=== PATIENT | male | born 1935 | race Caucasian/White ===

== ENCOUNTER 2021-12-03 10:44 | Day surgery (SDC) | payer MEDICARE, BC ==
[2021-12-02 12:38] LABS: BASOPHILS # (AUTO) 0.1 X10'3 (0-0.2); BASOPHILS % (AUTO) 0.9 % (0-1); EOSINOPHILS # (AUTO) 0.3 X10'3 (0-0.9); EOSINOPHILS % (AUTO) 4.1 % (0-6); HEMATOCRIT 35.7 % (42.0-52.0); HEMOGLOBIN 11.7 g/dl (14.0-17.9); LYMPHOCYTES # (AUTO) 1.5 X10'3 (1.1-4.8); LYMPHOCYTES % (AUTO) 19.7 % (21-51); MEAN CORPUSCULAR HEMOGLOBIN 29.3 PG (27.0-31.0); MEAN CORPUSCULAR HGB CONC 32.7 g/dL (33.0-36.5); MEAN CORPUSCULAR VOLUME 89.6 FL (78-98); MEAN PLATELET VOLUME 7.4 FL (7.4-10.4); MONOCYTES % (AUTO) 13.5 % (2-12); NEUTROPHILS # (AUTO) 4.7 X10'3 (1.8-7.7); NEUTROPHILS % (AUTO) 61.8 % (42-75); PLATELET COUNT 173 X10'3 (140-440); RED BLOOD COUNT 3.98 X10'6 (4.70-6.10); RED CELL DISTRIBUTION WIDTH 14.1 % (11.5-14.5); WHITE BLOOD COUNT 7.5 X10'3 (4.5-11.0)
[2021-12-02 12:54] LABS: APTT 30 SECONDS (22-32)
[2021-12-02 13:03] LABS: ALBUMIN 2.9 G/DL (3.4-5.0); ANION GAP 8 (8-16); BLOOD UREA NITROGEN 32 MG/DL (7-18); BUN/CREATININE RATIO 20.1 (5.4-32.0); CALCIUM 9.1 MG/DL (8.5-10.1); CHLORIDE 101 MMOL/L (99-107); CREATININE 1.59 MG/DL (0.60-1.10); GLUCOSE 111 MG/DL (70-104); POTASSIUM 4.1 MMOL/L (3.5-5.1); SODIUM 141 MMOL/L (135-145); TOTAL CARBON DIOXIDE 32.1 MMOL/L (24-32); eGFR 41 ML/MIN
[~2021-12-03] VITALS: Ht 170.2 cm; Wt 62.6 kg
[2021-12-03] VITALS (10 sets, daily range): BP systolic 118–150; BP diastolic 64–85
[2021-12-03] MEDS ORDERED: ceFAZolin inj. 2,000 MG in dextrose 5%-water 100 ML IV ONE (11:47)
[2021-12-03] MEDS ORDERED: ROSU20TA31 PO (11:48)
[2021-12-03] MEDS ORDERED: QUET50TA24 PO (11:48)
[2021-12-03] MEDS ORDERED: DULO30CA52 PO (11:48)
[2021-12-03] MEDS ORDERED: METO50TA16 PO (11:48)
[2021-12-03] MEDS ORDERED: APIX5TAB3 PO (11:48)
[2021-12-03] MEDS ORDERED: FLO0.4C (11:48)
[2021-12-03] MEDS ORDERED: METF-437 PO (11:48)
[2021-12-03] MEDS ORDERED: DULO60CA65 PO (11:48)
[2021-12-03] MEDS ORDERED: FURO20TA4 PO (11:48)
[2021-12-03] MEDS ORDERED: DIVA-74 PO (11:48)
[2021-12-03] MEDS ORDERED: MULT-1085 PO (12:00)
[2021-12-03] MEDS ORDERED: DONE10TA11 PO (12:00)
[2021-12-03] MEDS ORDERED: ACET325T57 PO (12:00)
[2021-12-03] MEDS ORDERED: MELA3TAB70 PO (12:04)
[2021-12-03] MEDS ORDERED: MIDO5TAB4 PO (12:04)
[2021-12-03] MEDS ORDERED: OMEGA KRILL PO (12:04)
[2021-12-03] MEDS ORDERED: CARB10DR5 (12:05)
[2021-12-03] MEDS ORDERED: ZINC50TA15 PO (12:06)
[2021-12-03] MEDS ORDERED: midazolam 1 mg/ML 2ml injection ONE (13:55)
[2021-12-03] MEDS ORDERED: fentaNYL/PF 50MCG/1 ML 2ML syringe ONE (13:56)
[2021-12-03] MEDS ORDERED: ceFAZolin 1000mg inj ONE (13:56)
[2021-12-03] MEDS ORDERED: LIDOCAINE 2% w/EPI 1:100:000 30mL injection MDV**cath lab 1 only ONE (13:56)
[2021-12-03] MEDS ORDERED: LIDOcaine 1% W/epiNEPHrine 1:100,000 20ml vial ONE (14:15)
[2021-12-03] MEDS ORDERED: vancomycin/NS 1 GM ADD-VANTAGE 250 ML X 1 DOSE IV ONE (15:50)
--- NOTE | 2021-12-03 18:51 | NUR ---
Report called to FARRUKH [facility] at [place]. All questions answered.
== END 2021-12-03 20:00 ==
LOC: SSTAY O 10:44
PROVIDERS: ATTEND Internal Medicine Cardiovascular Disease
DX: Z45.010 Encounter for checking and testing of cardiac pacemaker pulse generator [battery] (principal); E11.9 Type 2 diabetes mellitus without complications; I10 Essential (primary) hypertension; I48.91 Unspecified atrial fibrillation; Z79.899 Other long term (current) drug therapy; Z79.01 Long term (current) use of anticoagulants; Z87.891 Personal history of nicotine dependence
CPT/HCPCS: 33228; 36415; 80048; 82948; 85025; 85610; 85730; 93005; 99152; 99153; C1785; J0690; J2250; J3010; J3370; J3490; A6258; A6449

== ENCOUNTER 2021-12-04 07:41 | Emergency (ER) | payer MEDICARE, BC ==
[~2021-12-04] VITALS: Ht 170.2 cm; Wt 63.2 kg
[~2021-12-04 07:41] MED LIST: ACET325T57 PO; APIX5TAB3 PO; CARB10DR5; DIVA-74 PO; DONE10TA11 PO; DULO30CA52 PO; DULO60CA65 PO; FLO0.4C; FURO20TA4 PO; MELA3TAB70 PO; METF-437 PO; METO50TA16 PO; MIDO5TAB4 PO; MULT-1085 PO; OMEGA KRILL PO; QUET50TA24 PO; ROSU20TA31 PO; ZINC50TA15 PO
[2021-12-04 09:18] VITALS: BP 139/77
--- NOTE | 2021-12-04 09:47 | NUR ---
PT PACEMAKER DRESSING SITE IS OOZING BLOOD AND THE DRESSING IS ALREADY SOAKED.NOTIFIED DR JOSE ,ORDER TO REDRESS IT .JUWAN CANTOR DOING THE DRESSING CHANGE .
[2021-12-04 10:24] LABS: BASOPHILS # (AUTO) 0.1 X10'3 (0-0.2); BASOPHILS % (AUTO) 0.9 % (0-1); EOSINOPHILS # (AUTO) 0.4 X10'3 (0-0.9); EOSINOPHILS % (AUTO) 4.3 % (0-6); HEMATOCRIT 35.7 % (42.0-52.0); HEMOGLOBIN 12.1 g/dl (14.0-17.9); LYMPHOCYTES # (AUTO) 1.4 X10'3 (1.1-4.8); MEAN CORPUSCULAR HEMOGLOBIN 30.2 PG (27.0-31.0); MEAN CORPUSCULAR HGB CONC 33.8 g/dL (33.0-36.5); MEAN CORPUSCULAR VOLUME 89.5 FL (78-98); MEAN PLATELET VOLUME 6.8 FL (7.4-10.4); MONOCYTES # (AUTO) 1.4 X10'3 (0-0.9); MONOCYTES % (AUTO) 15.7 % (2-12); NEUTROPHILS # (AUTO) 5.7 X10'3 (1.8-7.7); NEUTROPHILS % (AUTO) 63.1 % (42-75); PLATELET COUNT 170 X10'3 (140-440); RED BLOOD COUNT 3.99 X10'6 (4.70-6.10); WHITE BLOOD COUNT 9.1 X10'3 (4.5-11.0)
[2021-12-04 10:35] LABS: APTT 28 SECONDS (22-32)
[2021-12-04 10:42] LABS: ALANINE AMINOTRANSFERASE 13 U/L (12-78); ALBUMIN/GLOBULIN RATIO 0.7 (1.1-1.5); ALKALINE PHOSPHATASE 57 IU/L (46-116); ANION GAP 6 (8-16); ASPARTATE AMINO TRANSFERASE 21 U/L (10-37); BILIRUBIN,TOTAL 0.5 MG/DL (0.1-1.0); BLOOD UREA NITROGEN 23 MG/DL (7-18); BUN/CREATININE RATIO 18.9 (5.4-32.0); CALCIUM 9.3 MG/DL (8.5-10.1); CHLORIDE 100 MMOL/L (99-107); CREATININE 1.22 MG/DL (0.60-1.10); GLUCOSE 136 MG/DL (70-104); POTASSIUM 4.4 MMOL/L (3.5-5.1); SODIUM 139 MMOL/L (135-145); TOTAL CARBON DIOXIDE 33.2 MMOL/L (24-32); TOTAL PROTEIN 7.2 G/DL (6.4-8.2); eGFR 56 ML/MIN
--- NOTE | 2021-12-04 12:13 | NUR ---
PT FAMILY REQUESTING DR JOSE TO CALL DR ECHAVARRIA'S OFFICE TO NOTIFY MD TO SEE PT PACEMAKER SITE BEFORE HE LEAVES, PER MD THEY CAN F/U WITH DR ECHAVARRIA AT OFFICE . INFORMED THE PT DAUGHTER THAT THEY HAVE TO F/U WITH THEIR DR OR DR ECHAVARRIA ON OUTPT BASIS.DAUGHTER VERBALIZED UNDERSTANDING. DRESSING SITE INTACT ,NOT BLEEDING . MD MORGAN IS AWARE OKAY TO D/C THE PT. DAUGHTER CALLING FOR THE RIDE TO [place].
--- NOTE | 2021-12-04 12:21 | NUR ---
SBAR TO NADER PRIMARY NURSE AT [facility] AT [phone] REGARDING PT F/U APPT FOR RECHECKING THE SITE AND ALSO INFORMED TO RETURN TO ER FOR ACTIVE BLEEDING .
== END 2021-12-04 12:40 | disposition home or self-care (01) ==
LOC: ER 07:42
DX: I97.618 Postprocedural hemorrhage of a circulatory system organ or structure following other circulatory system procedure (principal); Z95.0 Presence of cardiac pacemaker; Z86.79 Personal history of other diseases of the circulatory system; Z88.2 Allergy status to sulfonamides; Z79.899 Other long term (current) drug therapy
CPT/HCPCS: 80053; 83880; 85025; 85610; 85730; 99283

== ENCOUNTER 2021-12-05 10:36 | Observation (INO) | payer MEDICARE, BC ==
[~2021-12-05] VITALS: Ht 170.2 cm; Wt 63.0 kg
[2021-12-05] MEDS ORDERED: normal saline 1000ml 1,000 ML IV ONE (11:30)
--- NOTE | 2021-12-05 11:40 | NUR ---
To CT w pt
--- NOTE | 2021-12-05 11:50 | NUR ---
back from CT
[2021-12-05 12:28] LABS: BASOPHILS # (AUTO) 0.1 X10'3 (0-0.2); BASOPHILS % (AUTO) 0.9 % (0-1); EOSINOPHILS # (AUTO) 0.3 X10'3 (0-0.9); EOSINOPHILS % (AUTO) 3.9 % (0-6); HEMATOCRIT 35.2 % (42.0-52.0); HEMOGLOBIN 11.6 g/dl (14.0-17.9); LYMPHOCYTES # (AUTO) 1.5 X10'3 (1.1-4.8); LYMPHOCYTES % (AUTO) 21.3 % (21-51); MEAN CORPUSCULAR HEMOGLOBIN 29.3 PG (27.0-31.0); MEAN CORPUSCULAR VOLUME 88.8 FL (78-98); MEAN PLATELET VOLUME 6.9 FL (7.4-10.4); MONOCYTES # (AUTO) 1.2 X10'3 (0-0.9); MONOCYTES % (AUTO) 17.5 % (2-12); NEUTROPHILS # (AUTO) 3.9 X10'3 (1.8-7.7); NEUTROPHILS % (AUTO) 56.4 % (42-75); PLATELET COUNT 174 X10'3 (140-440); RED BLOOD COUNT 3.97 X10'6 (4.70-6.10); RED CELL DISTRIBUTION WIDTH 13.6 % (11.5-14.5); WHITE BLOOD COUNT 6.9 X10'3 (4.5-11.0)
[2021-12-05 12:36] LABS: APTT 28 SECONDS (22-32)
[2021-12-05 12:37] LABS: ALANINE AMINOTRANSFERASE 9 U/L (12-78); ALBUMIN/GLOBULIN RATIO 0.7 (1.1-1.5); ALKALINE PHOSPHATASE 57 IU/L (46-116); ANION GAP 6 (8-16); ASPARTATE AMINO TRANSFERASE 18 U/L (10-37); BILIRUBIN,TOTAL 0.5 MG/DL (0.1-1.0); BLOOD UREA NITROGEN 16 MG/DL (7-18); BUN/CREATININE RATIO 14.4 (5.4-32.0); CALCIUM 9.7 MG/DL (8.5-10.1); CHLORIDE 102 MMOL/L (99-107); CREATININE 1.11 MG/DL (0.60-1.10); GLUCOSE 130 MG/DL (70-104); POTASSIUM 4.3 MMOL/L (3.5-5.1); SODIUM 141 MMOL/L (135-145); TOTAL CARBON DIOXIDE 33.3 MMOL/L (24-32); TOTAL PROTEIN 7.1 G/DL (6.4-8.2); eGFR 63 ML/MIN
[2021-12-05] MEDS ORDERED: ondansetron/PF 4mg/2ml inj IV PRN (14:00)
[2021-12-05] MEDS ORDERED: mag hydrox/Alum hydrox/simeth 30ml oral suspension PO PRN (14:00)
[2021-12-05] MEDS ORDERED: acetaminophen 325mg tablet PO PRN ×3 (14:00→19:50)
[2021-12-05] MEDS ORDERED: magnesium hydroxide 30ml (MOM) UD suspension PO PRN (14:00)
[2021-12-05] MEDS ORDERED: morphine 2 MG/ML inj. syringe IV PRN (14:00)
[2021-12-05] MEDS: sodium chloride 0.45% 1,000 ML IV SCH (15:06)
--- NOTE | 2021-12-05 15:07 | NUR ---
Pt resting comfortably, unable to give ua with urinal, will cath pt.
[2021-12-05] MEDS ORDERED: LIDOcaine 2% 10ml TOPICAL JELLY (Urojet) MM ONE (15:40)
--- NOTE | 2021-12-05 16:16 | NUR ---
Pt soiled himself and was changed. Gown, blankets and bedding changed. Miller placed, UA obtained. Daughter at bedside.
[2021-12-05 16:49] LABS: CLARITY,URINE CLEAR (Clear); COLOR,URINE YELLOW (Yellow); GLUCOSE, URINE NEGATIVE (Neg); KETONES,URINE 40 mg/dl (Neg); LEUKOCYTE ESTERASE ,URINE NEGATIVE (Neg); NITRITES, URINE NEGATIVE (Neg); OCCULT BLOOD,URINE TRACE-INTACT (Neg); PH,URINE 7.5 (4.8-8.0); PROTEIN,URINE TRACE mg/dl (Neg); UA COLLECTION TYPE NON-SPECIFIED; UROBILINOGEN,URINE 0.2 E.U/dL (0.2-1.0)
[2021-12-05 16:56] LABS: BACTERIA,URINE NONE SEEN /HPF (Neg); MUCUS STRANDS NONE SEEN /LPF (Neg); RBC,URINE 0-2 /HPF (0-2); SQUAMOUS EPITHELIAL CELL,UR NONE SEEN /LPF (FEW); WBC,URINE 0-4 /HPF (0-4)
--- NOTE | 2021-12-05 17:33 | NUR ---
Pt used bedpan and had a small BM. Pt cleaned up, changed sacral wound dressing (there prior to arrival- red area 3" grindstone with skin breakdown in center) applied. Pt moved up in bed. Daughter at bedside.
[2021-12-05] MEDS ORDERED: QUETIAPINE FUMARATE 50 MG PO SCH (20:00)
[2021-12-05] MEDS: metFORMIN 850mg tablet PO SCH (20:00)
[2021-12-05] MEDS ORDERED: midodrine 5mg tablet PO SCH (20:00)
[2021-12-05] MEDS: apixaban 5mg tablet PO SCH (20:00)
--- NOTE | 2021-12-05 20:47 | NUR ---
To be held from evening medications per Hospitalist: Eliquis (Pt has been bleeding from recent sx site), Glucophage (pt to be put on hyperglycemic/hypoglycemic protocol), midodrine (pt hypertensive)
[2021-12-05] MEDS ORDERED: QUEtiapine 25mg tablet PO SCH (20:56)
[2021-12-05] MEDS ORDERED: donepezil 5mg tablet PO SCH (21:00)
[2021-12-05] MEDS ORDERED: atorvastatin 20mg tablet PO SCH (21:00)
[2021-12-05] MEDS ORDERED: non-formulary drug (Melatonin 1 TAB) PO SCH (21:00)
[2021-12-05] MEDS ORDERED: Melatonin 3mg tablet PO SCH (21:00)
[2021-12-05] MEDS: docusate sod 100mg capsule PO SCH ×2 (21:11→22:15)
--- NOTE | 2021-12-05 21:30 | NUR ---
pt daughter and Power of [employer] [facility]
[2021-12-05 22:30] VITALS: BP 131/78
[2021-12-05] MEDS: divalproex 250mg tablet, delayed-release PO SCH (23:31)
[2021-12-06] MEDS: morphine 2 MG/ML inj. syringe IV PRN ×2 (01:58→03:52)
[2021-12-06 04:23] VITALS: BP 126/71
[2021-12-06] MEDS: sodium chloride 0.45% 1,000 ML IV SCH ×2 (04:43)
--- NOTE | 2021-12-06 06:20 | NUR ---
Problems reprioritized. Patient report given, questions answered & plan of care reviewed with Bibi CHADWICK. Addendum: 12/06/21 at 0621 by Annette Bowie RN Amended: Links added.
[2021-12-06 06:32] LABS: BASOPHILS # (AUTO) 0.1 X10'3 (0-0.2); BASOPHILS % (AUTO) 1.1 % (0-1); EOSINOPHILS # (AUTO) 0.4 X10'3 (0-0.9); EOSINOPHILS % (AUTO) 4.1 % (0-6); HEMATOCRIT 33.1 % (42.0-52.0); LYMPHOCYTES # (AUTO) 1.9 X10'3 (1.1-4.8); LYMPHOCYTES % (AUTO) 22.3 % (21-51); MEAN CORPUSCULAR HEMOGLOBIN 29.7 PG (27.0-31.0); MEAN CORPUSCULAR HGB CONC 33.2 g/dL (33.0-36.5); MEAN CORPUSCULAR VOLUME 89.5 FL (78-98); MEAN PLATELET VOLUME 6.8 FL (7.4-10.4); MONOCYTES # (AUTO) 1.5 X10'3 (0-0.9); MONOCYTES % (AUTO) 17.2 % (2-12); NEUTROPHILS # (AUTO) 4.8 X10'3 (1.8-7.7); NEUTROPHILS % (AUTO) 55.3 % (42-75); PLATELET COUNT 180 X10'3 (140-440); RED CELL DISTRIBUTION WIDTH 13.8 % (11.5-14.5); WHITE BLOOD COUNT 8.7 X10'3 (4.5-11.0)
[2021-12-06 06:43] LABS: ALBUMIN 2.7 G/DL (3.4-5.0); ANION GAP 9 (8-16); BLOOD UREA NITROGEN 16 MG/DL (7-18); BUN/CREATININE RATIO 14.3 (5.4-32.0); CHLORIDE 104 MMOL/L (99-107); CREATININE 1.12 MG/DL (0.60-1.10); GLUCOSE 129 MG/DL (70-104); POTASSIUM 3.5 MMOL/L (3.5-5.1); SODIUM 141 MMOL/L (135-145); TOTAL CARBON DIOXIDE 28.2 MMOL/L (24-32); eGFR 62 ML/MIN
--- NOTE | 2021-12-06 06:53 | NUR ---
Patient in room [facility] 4011. I have received report from abimael CHADWICK and had the opportunity to ask questions and assume patient care.
[2021-12-06 07:00] VITALS: BP 159/89
[2021-12-06] MEDS ORDERED: OMEGA KRILL PO SCH (08:00)
[2021-12-06] MEDS ORDERED: metoprolol tartrate 50mg tablet PO SCH (08:00)
[2021-12-06] MEDS ORDERED: ZINC GLUCONATE 50 MG PO SCH (08:00)
[2021-12-06] MEDS ORDERED: duloxetine 30mg CAPSULE.DR PO SCH ×2 (08:00)
[2021-12-06] MEDS ORDERED: furosemide 20MG tablet PO SCH (08:00)
[2021-12-06] MEDS ORDERED: multivitamins, therapeutics tablet PO SCH (08:00)
[2021-12-06 08:39] VITALS: BP_SYST 159
[2021-12-06] MEDS: apixaban 5mg tablet PO SCH (08:40)
[2021-12-06] MEDS: divalproex 250mg tablet, delayed-release PO SCH ×2 (08:41→13:59)
[2021-12-06] MEDS: metFORMIN 850mg tablet PO SCH (08:41)
[2021-12-06] MEDS ORDERED: CEPH250T PO (11:14)
--- NOTE | 2021-12-06 11:39 | NUR ---
DM/Huan Consults "no A1C on metformin": Pt admit DX confusion hx T2DM w/ no A1C this admit or prior A1C hx in EMR. Glu 112-132mg/dl on metformin this admit appropriate range given age; PO intake first carb controlled meals pending. KJ sy MD regarding A1C this admit if agreeable. Huan 10 w/ bilateral buttocks asymptomatic though area of concern pending WOC assessment this admit per EMR. Will monitor for A1C results and WOC notes for further nutrition intervention needs this admit. Addendum: 12/06/21 at [address] Amended: Links added.
--- NOTE | 2021-12-06 12:16 | NUR ---
patient up walking with PT Tele called to say patients HR was in 170's. PT encouraged patient to sit and HR returned to 110. patient is v paced and in afib Dr Tuttle aware. Dressing changed to left chest calos intact. patient is for DC to [place]. spoke with daughter Areli with regards this.
--- NOTE | 2021-12-06 14:16 | NUR ---
Report called to Ana Maria CHADWICK at [facility]. patient appears stable. All DC instructions given to family and patient. patient DC home to [facility] via private car in stable condition.
--- NOTE | 2021-12-06 14:58 | NUR ---
Dr betancur came to see patient but patient had left. order given to change metoprolol from 50mg daily to 75mg BID , order called into [facility] in [place] [phone] which was then related to Ana Maria CHADWICK from [place]
== END 2021-12-06 14:05 | disposition home or self-care (01) ==
LOC: ER 10:37 → ED HOLD 14:02 → ORTHO 4S 21:45
PROVIDERS: ADMIT Internal Medicine; ATTEND Internal Medicine
DX: R41.0 Disorientation, unspecified (principal); I48.0 Paroxysmal atrial fibrillation; N40.0 Benign prostatic hyperplasia without lower urinary tract symptoms; E78.5 Hyperlipidemia, unspecified; E11.9 Type 2 diabetes mellitus without complications; I49.5 Sick sinus syndrome; F03.90 Unspecified dementia, unspecified severity, without behavioral disturbance, psychotic disturbance, mood disturbance, and anxiety; G93.40 Encephalopathy, unspecified; Z95.0 Presence of cardiac pacemaker; I10 Essential (primary) hypertension; Z79.84 Long term (current) use of oral hypoglycemic drugs; Z87.891 Personal history of nicotine dependence; Z79.899 Other long term (current) drug therapy; Z79.01 Long term (current) use of anticoagulants
CPT/HCPCS: 36415; 70450; 71045; 80048; 80053; 81001; 82948; 83880; 84145; 85025; 85610; 85730; 87081; 96361; 96374; 96376; 97162; 97530; 99285; G0378; J2270; J3490; J7030